=== PATIENT | female | born 2000 | race Two or more races ===

== ENCOUNTER 2019-07-31 10:08 | Emergency (ER) | payer SELFPAY ==
[~2019-07-31] VITALS: Ht 160 cm; Wt 47.2 kg
--- NOTE | 2019-07-31 10:15 | NUR ---
"Took pill yesterday feel bad today nausea/vomiting/vag bleed", TO ER BED 3, HOOKED TO MONITOR, CHANGED TO HOSP GOWN, WARM BLANKET PROVIDED, AWAITING MD DELONG
--- NOTE | 2019-07-31 10:35 | NUR ---
DR BRENNAN AT BEDSIDE
[2019-07-31] MEDS ORDERED: ONDANSETRON HCL/PF 4 MG/2 ML VIAL ONE (10:51)
[2019-07-31] MEDS ORDERED: IV NS 0.9% 1,000 ML BAG IV ONE (11:00)
[2019-07-31] MEDS ORDERED: ONDANSETRON HCL/PF - ER 4 MG/2 ML VIAL IV ONE (11:00)
--- NOTE | 2019-07-31 13:16 | NUR ---
patient still nauseous, made aware
[2019-07-31] MEDS ORDERED: METOCLOPRAMIDE HCL 10 MG/2 ML VIAL ONE (13:20)
[2019-07-31] MEDS ORDERED: METOCLOPRAMIDE HCL 10 MG/2 ML VIAL IV ONE (13:30)
--- NOTE | 2019-07-31 13:58 | NUR ---
patient able to tolerate fluids. md aware
--- NOTE | 2019-07-31 14:06 | NUR ---
IV removed. Catheter intact and site benign. Pressure and 4x4 applied to site. No bleeding noted.Patient discharged to home in stable condition. Written and verbal after care instructions given. Patient verbalizes understanding of instruction.
[2019-07-31 14:13] VITALS: BP 119/60
== END 2019-07-31 14:13 | disposition home or self-care (01) ==
LOC: ER 10:13
DX: O03.9 Complete or unspecified spontaneous abortion without complication (principal); R11.2 Nausea with vomiting, unspecified; R00.0 Tachycardia, unspecified
CPT/HCPCS: 99284; 96374; 96375; 96361; J2405; J2765; J7030; J7040